=== PATIENT | female | born 1990 | race Caucasian/White ===

== ENCOUNTER 2020-06-02 14:47 | Observation (INO) | payer BC, OTHER ==
[~2020-06-02] VITALS: Ht 158.8 cm; Wt 99.8 kg
[2020-06-02 16:42] LABS: HEMOGLOBIN 15.4 gm/dl (12.3-15.3); RED BLOOD COUNT 5.33 M/UL (4.00-5.10); WHITE BLOOD COUNT 16.6 K/UL (4.5-11.0)
[2020-06-02 17:01] LABS: BUN/CREATININE RATIO 26 (0-10)
[2020-06-03 04:34] LABS: HEMOGLOBIN 12.4 gm/dl (12.3-15.3); RED BLOOD COUNT 4.37 M/UL (4.00-5.10)
[2020-06-03 04:52] LABS: BUN/CREATININE RATIO 29 (0-10)
[2020-06-03] MEDS ORDERED: IBUPROFEN800 MG PO (17:17)
[2020-06-03] MEDS ORDERED: HYDROCODON-ACE1 EAC4 PO (17:17)
== END 2020-06-03 17:57 | disposition home or self-care (01) ==
LOC: ER1 14:47 → CDU 16:07
PROVIDERS: Emergency Medicine; Physician Assistant Medical; ADMIT Internal Medicine
DX: S42.351A Displaced comminuted fracture of shaft of humerus, right arm, initial encounter for closed fracture (principal); F17.290 Nicotine dependence, other tobacco product, uncomplicated; E66.01 Morbid (severe) obesity due to excess calories; Z20.822 Contact with and (suspected) exposure to COVID-19; Z86.79 Personal history of other diseases of the circulatory system; Z88.2 Allergy status to sulfonamides; W00.0XXA Fall on same level due to ice and snow, initial encounter
CPT/HCPCS: 29105; 71045; 73060; 76000; 80048; 80053; 83735; 84703; 85025; 85027; 93005; 96374; 96375; 99284; C1713; G0378; J0171; J0690; J1100; J1170; J2001; J2250; J2270; J2405; J2704; J2710; J2795; J3010; J7120; U0002

== ENCOUNTER 2020-06-09 16:25 | Emergency (ER) | payer BC, OTHER ==
[~2020-06-09 16:25] MED LIST: HYDROCODON-ACE1 EAC4 PO; IBUPROFEN800 MG PO
== END 2020-06-09 18:52 | disposition home or self-care (01) ==
LOC: ER1 16:25
DX: L76.32 Postprocedural hematoma of skin and subcutaneous tissue following other procedure (principal); Z88.2 Allergy status to sulfonamides
CPT/HCPCS: 93971; 99283